=== PATIENT | male | born 1955 | race Caucasian/White ===

== ENCOUNTER 2020-02-03 07:26 | Outpatient (CLI) | payer OTHER ==
[2020-02-03 11:20] LABS: Prothrombin Time 13.2 sec (12.0-14.7)
[2020-02-03 11:49] LABS: #Basophils 0.1 thou/uL (0.0-0.2); #Eosinphils 0.3 thou/uL (0.0-0.7); #Lymphocytes 1.9 thou/uL (1.20-3.40); #Monocytes 0.4 thou/uL (0.11-0.59); #Neutrophils 3.3 thou/uL (1.40-6.50); %Eosinophils 4.4 % (0.0-10.0); %Lymphocytes 31.7 % (21.0-51.0); %Monocytes 6.7 % (0.0-10.0); %Neutrophils 56.3 % (42.0-75.0); Hemoglobin 15.8 g/dL (14.0-18.0); Mean Corpuscular HGB CONC 31.2 g/dL (32.0-36.0); Mean Platelet Volume 9.1 fL (7.4-10.4); Platelet Count 219 thou/uL (130-400); RBC Distribution Width 11.6 % (11.5-14.5); Red Blood Cell (RBC) Count 5.28 mill/uL (4.70-6.10); White Blood Cell (WBC) Count 5.9 thou/uL (4.8-10.8)
[2020-02-03 12:03] LABS: Anion Gap 14 mmol/L (10-20); BUN (Urea Nitrogen) 20 mg/dL (8.4-25.7); Calc. Creatinine Clearance 0 mL/min (70-130); Calcium 9.3 mg/dL (7.8-10.44); Carbon Dioxide 27 mmol/L (23-31); Chloride 104 mmol/L (98-107); Estimated GFR-MDRD 75; Glucose 94 mg/dL (80-115); Potassium 4.7 mmol/L (3.5-5.1); Sodium 140 mmol/L (136-145)
[2020-02-03 12:32] LABS: Bacteria/HPF None Seen HPF (None Seen); Bilirubin Negative (Negative); Blood, Urine Trace (Negative); Clarity Clear (Clear); Glucose, Urine (Dipstick) Normal (Negative); Ketone, Urine Negative (Negative); Leukocyte Negative Leu/uL (Negative); Nitrite Negative (Negative); Protein, Urine (Dipstick) 200 mg/dL (Neg-Trace); RBC/HPF 0-3 HPF (0-3); Specific Gravity, Urine 1.018 (1.002-1.036); Squamous Epithelial 0-3 HPF (0-3); Urobilinogen Normal mg/dL (Less than 2)
[2020-02-03 17:49] LABS: SARS-CoV-2 MS2 Positive; SARS-CoV-2 N Gene Negative; SARS-CoV-2 S Gene Negative; SARS-CoV-2 by NAA Not Detected (NotDetected); SARS-CoV-2 orf1ab Negative
== END 2020-02-03 07:27 | disposition home or self-care (01) ==
LOC: LABBT 07:26
PROVIDERS: ATTEND Orthopaedic Surgery
DX: Z01.818 Encounter for other preprocedural examination (principal); Z20.828 Contact with and (suspected) exposure to other viral communicable diseases; M17.12 Unilateral primary osteoarthritis, left knee
CPT/HCPCS: 80048; 81001; 85025; 85610; 87081; 87635; 93005; 93010; U0003

== ENCOUNTER 2020-02-03 09:00 | Inpatient (IN) | payer OTHER ==
[2020-02-07] MEDS ORDERED: Sodium Chloride 0.9% 100 ML ONE (06:57)
[2020-02-07] MEDS ORDERED: Vancomycin 1.5 GRAM/300 ML BAG ONE (06:57)
[2020-02-07] MEDS ORDERED: Tranexamic Acid 1,000 MG/10 ML VIAL ONE ×2 (06:57→11:45)
[2020-02-07] MEDS ORDERED: Fentanyl 100 MCG/2 ML VIAL ONE ×7 (08:27→12:50)
[2020-02-07] MEDS ORDERED: Midazolam HCl 2 mg/2 ml Vial ONE (08:27)
[2020-02-07] MEDS ORDERED: Zolpidem Tartrate 5 MG TAB PO PRN ×2 (09:10→09:45)
[2020-02-07] MEDS ORDERED: traMADol HCl 50 MG TAB PO PRN ×3 (09:10→09:45)
[2020-02-07] MEDS ORDERED: Acetaminophen 325 MG TAB PO PRN (09:10)
[2020-02-07] MEDS ORDERED: HYDROcodone/Acetaminophen 10/325 mg Tablet PO PRN ×3 (09:10→09:45)
[2020-02-07] MEDS ORDERED: Fentanyl 100 MCG/2 ML VIAL SLOW IVP PRN ×2 (09:10→09:44)
[2020-02-07] MEDS ORDERED: diphenhydrAMINE 25 MG CAP PO PRN (09:10)
[2020-02-07] MEDS ORDERED: Promethazine HCl 25 MG/ML VIAL IM PRN ×3 (09:10→11:47)
[2020-02-07] MEDS ORDERED: Ondansetron PF 4 MG/2 ML Vial IVP PRN ×2 (09:10→09:45)
[2020-02-07] MEDS ORDERED: Tranexamic Acid 1,000 MG in Sodium Chloride 0.9% 100 ML IVPB SCH (09:15)
[2020-02-07] MEDS ORDERED: Ropivacaine HCl/PF 250 ML in Premix Bag 1 BAG NERVE BLCK SCH (09:45)
[2020-02-07] MEDS ORDERED: Bupivacaine PF 0.5% 30 ML VIAL ONE (10:07)
[2020-02-07] MEDS ORDERED: Ketorolac Tromethamine 30 MG/ML VIAL ONE (10:59)
[2020-02-07] MEDS ORDERED: Lidocaine 1% PF 5 ML VIAL ONE (10:59)
[2020-02-07] MEDS ORDERED: Ropivacaine 0.2% HCl/PF (40 MG/20 ML VIAL) ONE (10:59)
[2020-02-07] MEDS ORDERED: Bupivacaine HCl 0.5%/Epinephrine 1:200,000/PF 30 ml Vial ONE ×2 (10:59)
[2020-02-07] MEDS ORDERED: Ondansetron PF 4 MG/2 ML Vial ONE (10:59)
[2020-02-07] MEDS ORDERED: PROPOFOL 200 MG/20 ML VIAL ONE (10:59)
[2020-02-07] MEDS ORDERED: HYDROmorphone 2 MG/ML VIAL SLOW IVP PRN (11:47)
[2020-02-07] MEDS ORDERED: Ondansetron HCl/PF 4 MG/2 ML Vial IVP PRN (11:47)
[2020-02-07] MEDS ORDERED: Promethazine HCl 25 MG/ML VIAL SLOW IVP PRN (11:47)
[2020-02-07] MEDS ORDERED: HYDROmorphone 0.5 MG/0.5 ML SYRINGE ONE ×2 (12:06→12:24)
[2020-02-07] MEDS ORDERED: HYDROmorphone 2 MG/ML VIAL ONE (12:51)
[2020-02-07] MEDS ORDERED: Ketorolac Tromethamine 30 MG/ML VIAL IVP SCH (14:00)
[2020-02-07] MEDS: CEFAZOLIN 2 GM in Premix Bag 1 BAG IVPB SCH ×2 (15:37→23:30)
[2020-02-07] MEDS: Sodium Chloride 0.9% 1,000 ML IV SCH ×2 (15:37→23:33)
[2020-02-07] MEDS: Ketorolac Tromethamine 30 MG/ML VIAL IVP SCH ×3 (16:07→23:30)
--- NOTE | 2020-02-07 17:42 | OP ---
DATE OF PROCEDURE: 02/07/2020 IN [place]: Neel Cuevas PA-C PREOPERATIVE DIAGNOSIS: Left knee osteoarthrosis. POSTOPERATIVE DIAGNOSIS: Left knee osteoarthrosis. PROCEDURE: Left total knee replacement using [employer] pinless navigation system. ANESTHESIA: General anesthetic. BLOOD LOSS: Minimal. COMPLICATIONS: None. TOURNIQUET TIME: DISPOSITION: Went to recovery room in stable condition. IMPLANTS: [employer] total knee system. The femur was a size 5 cruciate-retaining left femur. We used a size 5 primary tibial base plate. We used a 5 x 11 mm CS X3 tibial bearing. We used an asymmetric 29 x 9 X3 patella. INDICATIONS: This is a 64-year-old male, who presents with severe left knee osteoarthrosis and has failed nonoperative treatment. At this time, he wished to have his knee replaced. PROCEDURE IN DETAIL: After all appropriate consent forms were explained and signed, the patient was taken back to the operating room and at this time was given general anesthetic. Once the level of anesthesia was appropriate, a well-padded tourniquet was placed on the left leg, and the leg was then prepped and draped in standard surgical fashion. The limb was exsanguinated and tourniquet taken up to 300 mmHg. Midline incision was made with a 10 blade down through the skin and subcutaneous tissue. Bovie electrocautery was used to coagulate any brisk venous bleeding. A new blade was used to make a medial parapatellar arthrotomy. Small subperiosteal release was performed medially and excess fat pad was removed. The knee was flexed up to gain access to the femur. The femur was navigated and distal femoral resection was made. Epicondylar access was used to align our sizing jig and this was pinned in place. We sized our femur to be a 5 cruciate-retaining left femur. 4:1 cutting block was applied and pinned. Anterior and posterior chamfer cuts were then made. We navigated out our proximal tibia and made our proximal tibial resection. Spreaders were used to remove any posterior osteophytes off the back of the femur as well as remaining meniscal tissue. A long alignment gabriel was then used to achieve correct rotation of our tibial baseplate and a size 5 primary tibial base plate was chosen. This was pinned in place. We trialed the polyethylene and a 5 x 11 mm CS X3 tibial bearing polyethylene gave us full extension and good stability throughout range of motion. Two towel clips and a saw were used to cut our patella. Three lug nuts were drilled and 29 x 9 X3 patella was trialed which sat nicely in the trochlear groove. We then drilled our femur and punched our tibia. All components were removed. The knee was thoroughly irrigated and dried. Cement was mixed into the cement gun on the back table. Components were then placed. The knee was held out in full extension until the cement had dried. All excess bone cement was removed. Multiple #2 Vicryl stitches as well as a Quill were used to close our extensor mechanism. 0 Quill followed by a running Monoderm was then used to close the skin. Surgicel glue was then used on the skin. Once this had dried, soft tissue dressing was applied to the limb, tourniquet was let down, and the toes pinked up nicely. The patient was then awakened and taken to the recovery room in stable condition. All counts were correct at the end of the case. The patient did receive preoperative IV antibiotics. The patient was injected with Marcaine for postoperative pain relief. The assistant associate full professor surgeon was present and involved throughout the procedure to include the approach, placement of implants, and closure. Job ID: [id number]
[2020-02-07] MEDS: HYDROcodone/Acetaminophen 10/325 mg Tablet PO PRN (18:05)
[2020-02-07] MEDS ORDERED: Vancomycin 1 GM in Premix Bag 1 BAG IVPB SCH (20:00)
[2020-02-07] MEDS: Aspirin 81 mg Enteric Coated Tablet PO SCH (20:53)
[2020-02-08 05:38] LABS: Hemoglobin 12.2 g/dL (14.0-18.0); Mean Platelet Volume 9.1 fL (7.4-10.4); Platelet Count 166 thou/uL (130-400); RBC Distribution Width 11.3 % (11.5-14.5); Red Blood Cell (RBC) Count 3.81 mill/uL (4.70-6.10); White Blood Cell (WBC) Count 8.4 thou/uL (4.8-10.8)
[2020-02-08] MEDS: Ketorolac Tromethamine 30 MG/ML VIAL IVP SCH ×4 (05:42→23:11)
[2020-02-08] MEDS: Sodium Chloride 0.9% 1,000 ML IV SCH ×2 (07:41→16:44)
[2020-02-08] MEDS: Aspirin 81 mg Enteric Coated Tablet PO SCH ×2 (08:43→19:53)
[2020-02-08] MEDS: Loratadine 10 MG TAB PO SCH (08:43)
[2020-02-08] MEDS: Multivitamin W/ Minerals 1 TAB PO SCH (08:43)
[2020-02-08] MEDS: Ferrous Gluconate 324 MG TAB PO SCH ×2 (08:43→17:45)
[2020-02-08] MEDS: Senokot S 8.6-50 MG TAB PO SCH ×2 (08:43→19:53)
[2020-02-08] MEDS: HYDROcodone/Acetaminophen 10/325 mg Tablet PO PRN ×4 (08:44→23:12)
[2020-02-08] MEDS ORDERED: FLU VACC QS2020-21(6MOS UP)/PF 60 MCG/0.5 ML SYRINGE IM ONE (09:00)
[2020-02-08] MEDS ORDERED: Non-Formulary Item 1 EACH (Multivitamin [Multi-Vitamin Daily] 1 TABLET Tablet) PO SCH (09:00)
[2020-02-08 14:24] VITALS: BMI 34.9
[2020-02-09] MEDS: HYDROcodone/Acetaminophen 10/325 mg Tablet PO PRN ×3 (04:31→14:16)
[2020-02-09] MEDS: Sodium Chloride 0.9% 1,000 ML IV SCH ×2 (04:55→11:06)
[2020-02-09 05:16] LABS: Hemoglobin 11.1 g/dL (14.0-18.0); Mean Corpuscular Hemoglobin 32.9 pg (27.0-31.0); Mean Corpuscular Volume 94.1 fL (78.0-98.0); Mean Platelet Volume 8.8 fL (7.4-10.4); Platelet Count 148 thou/uL (130-400); RBC Distribution Width 11.2 % (11.5-14.5); Red Blood Cell (RBC) Count 3.36 mill/uL (4.70-6.10); White Blood Cell (WBC) Count 8.6 thou/uL (4.8-10.8)
[2020-02-09] MEDS: Ketorolac Tromethamine 30 MG/ML VIAL IVP SCH (05:40)
[2020-02-09] MEDS: Multivitamin W/ Minerals 1 TAB PO SCH (08:48)
[2020-02-09] MEDS: Ferrous Gluconate 324 MG TAB PO SCH (08:48)
[2020-02-09] MEDS: Senokot S 8.6-50 MG TAB PO SCH (08:48)
[2020-02-09] MEDS: Loratadine 10 MG TAB PO SCH (08:49)
[2020-02-09] MEDS: Aspirin 81 mg Enteric Coated Tablet PO SCH (08:49)
[2020-02-09 14:22] VITALS: BP 147/74; TEMP 98.8
== END 2020-02-09 14:32 | disposition home or self-care (01) | DRG 470 ==
LOC: SURG A 02-07 06:23 → EDSTATUS 02-07 09:00 → SJJU 02-07 15:02
PROVIDERS: ADMIT Orthopaedic Surgery; ATTEND Orthopaedic Surgery
PROC: 0SRD0J9 Replacement of Left Knee Joint with Synthetic Substitute, Cemented, Open Approach (ICD-10-PCS; principal; 2020-02-07)
DX: M17.12 Unilateral primary osteoarthritis, left knee (principal)
CPT/HCPCS: 36415; 85027; C1713; C1776; J0690; J1170; J1885; J2250; J2405; J2550; J2704; J2795; J3010; J3370; J3490; S0020